=== PATIENT | male | born 1990 | race Caucasian/White ===

== ENCOUNTER 2021-05-05 12:09 | Emergency (ER) | payer OTHER ==
[~2021-05-05] VITALS: Ht 180.3 cm; Wt 89.8 kg
--- NOTE | ~2021-05-05 | EMS ---
[facility] [address] [place] [address] EMS Patient Care Report Name: CYNDY JAMES Room #: DEP TAYLA Wright#: [id number] Admission: 05/05/21 Attend Phys: Discharge: 05/05/21 Date of : [birth year] Report #: [id number] THIS REPORT FOR: //name// Report Transmitted: 05/05/2021 20:19 EMS Care Summary [place], [place]/[facility] Incident [id number] @ 05/05/2021 11:26 Incident Location [address] [place] [id number] Patient CYNDY JAMES Male, 30 Years 1990 Patient Address [address] [place] [address] Patient History Anxiety Disorder (Panic Attacks),Anxiety, Patient Allergies No known allergies, Patient Medications None Reported, Chief Complaint I have a lot of stress going on, panic attack Disposition Transported No Lights/[place] Dispatch Reason Chest Pain (Non-Traumatic) Transported To [facility] Narrative Called for CP. Upon arrival, pt was at the [facility] clinic c/o CP and SOB. Pt was moved to the EMS cot and loaded into the ambulance w/o incident. [facility] [address] [place] [address] EMS Patient Care Report Name: CYNDY JAMES Room #: DEP Kyle#: [id number] Admission: 05/05/21 Attend Phys: Discharge: 05/05/21 Date of : [birth year] Report #: [id number] He stated he has anxiety issues and is going through a fair amount of stress. Vitals obtained. 12 lead obtained. 18g IV SL. Vitals repeated. En route: pt calmed down and was doing a lot better. RR to the ER. Arrived: pt taken to ER #7 and moved to their bed w/o incident. Pt care & report to ER staff. Initial Vitals @11:47P: 47,SpO2: 99, @11:52P: 50,R: 16,Pain: 0/10,GCS: 15,CO: 0,SpO2: 100,NE Suspected: false @11:44P: 75,R: 16,BP: 138/72,Pain: 0/10,GCS: 15,CO: 0,SpO2: 100,Revised Trauma: 12, @11:48P: 39,R: 16,BP: 154/74,Pain: 0/10,GCS: 15,Glucose: 102,SpO2: 98,Revised Trauma: 12,NE Suspected: false Assessments @11:33MENTAL:Person Oriented,Time Oriented,Place Oriented,Event Oriented,SKIN:HEENT:LUNG SOUNDS:ABDOMEN:PELVIS//GI:EXTREMITIES:Left Arm: No Abnormalities,Right Arm: No Abnormalities,Left Leg: No Abnormalities,Right Leg: No Abnormalities,PULSE:Radial: 2+ Normal,NEURO:No Abnormalities, Impression Anxiety reaction/Emotional upset Procedures @11:52 12-Lead ECG Response: UnchangedSucceeded @11:47 12-Lead ECG Response: UnchangedSucceeded @11:48 IV Therapy - Saline Lock cc (18 ga) Site: Antecubital-Left Response: UnchangedFailed @11:37 Stretcher Response: Unchanged @11:45 3-Lead ECG Response: UnchangedSucceeded @11:33 ALS Assessment Response: UnchangedSucceeded Timeline 11:24,Call Received 11:24,Dispatch Notified 11:26,Dispatched 11:28,En Route 11:32,On Scene 11:33,At Patient 11:33,ALS Assessment,Response: UnchangedSucceeded, 11:37,Stretcher,Response: Unchanged 11:44,BP: 138/72 M,PULSE: 75,RR: 16 R,SPO2: 100 Ox,ETCO2: ,BG: ,PAIN: 0,GCS: 15, 11:45,3-Lead ECG,Response: UnchangedSucceeded, 11:47,12-Lead ECG,Response: UnchangedSucceeded, 11:47,BP: / M,PULSE: 47,RR: R,SPO2: 99 Ox,ETCO2: ,BG: ,PAIN: ,GCS: , [facility] [address] [place] [address] EMS Patient Care Report Name: CYNDY JAMES Room #: STEFFEN Wright#: [id number] Admission: 05/05/21 Attend Phys: Discharge: 05/05/21 Date of : [birth year] Report #: [id number] 11:48,IV Therapy - Saline Lock cc 18 ga Site: Antecubital-Left,Response: UnchangedFailed, 11:48,BP: 154/74 M,PULSE: 39,RR: 16 R,SPO2: 98 Ox,ETCO2: ,B,PAIN: 0,GCS: 15, 11:50,Depart Scene 11:52,12-Lead ECG,Response: UnchangedSucceeded, 11:52,BP: / M,PULSE: 50,RR: 16 R,SPO2: 100 Ox,ETCO2: ,BG: ,PAIN: 0,GCS: 15, 12:03,At Destination 12:27,Call Closed Disclaimer [email or web address] Copyright 2021 [employer] This EMS Care Summary contains data elements from the applicable legal record (which may be displayed differently). It is designed to provide pertinent information for the following purposes: continuity of care, clinical quality, and state data reporting. The complete legal record is available to ED staff and administrators of the receiving hospital in [employer] Patient Tracker. All data is provided "as is."
[2021-05-05 12:27] LABS: ABSOLUTE NEUTROPHILS 4.6 thou/uL (1.4-8.2); BASOPHILS 0.8 % (0.0-2.0); EOSINOPHILS 0.3 % (0.0-3.0); HEMATOCRIT 47.2 % (42.0-52.0); HEMOGLOBIN 16.4 gm/dL (14.0-18.0); LYMPHOCYTES 26.9 % (24.0-44.0); MCH 30.8 pg (26.0-34.0); MCHC 34.8 g/dL (28.0-37.0); MCV 88.5 fL (80.0-100.0); MONOCYTES 5.6 % (1.0-8.0); PLATELET COUNT 220 thou/uL (150-400); POLYS 66.4 % (36.0-66.0); RBC 5.33 mil/uL (4.50-6.00); RDW 13.4 % (10.5-14.5); WBC 6.9 thou/uL (4.0-11.0)
[2021-05-05 12:41] LABS: CALCIUM 9.8 mg/dL (8.5-10.1); CREATININE 1.1 mg/dL (0.7-1.3); POTASSIUM 4.2 mmol/L (3.5-5.1)
[2021-05-05 12:51] LABS: ALBUMIN 4.3 g/dL (3.4-5.0); TOTAL PROTEIN 7.1 g/dL (6.4-8.2)
[2021-05-05] MEDS ORDERED: NAPROSYN500 MG PO (13:17)
[2021-05-05 13:28] VITALS: BP 117/63
--- NOTE | 2021-05-05 15:58 | EKG ---
[place] [address] [facility] [place] [address] ELECTROCARDIOGRAM REPORT Name: CYNDY JAMES Room #: DEP TAYLA Wright#: [id number] Admission: 05/05/21 Attend Phys: Discharge: 05/05/21 Date of : [birth year] Report #: [id number] [facility] ED Test Date: 2021-05-05 Test Time: 12:19:08 Pat Name: CYNDY JAMES Department: Room: Gender: M Test Man: RAJ : 1990 Requested By: Sebastien Hood Order Number: [id number] MD: Bernardino Griffith Measurements Intervals [place] Rate: 50 P: 148 CT: 182 QRS: 91 QRSD: 105 T: 32 QT: 432 QTc: 394 Interpretive Statements Sinus or ectopic atrial rhythm Borderline right axis deviation No previous ECG available for comparison Electronically Signed On 05-05-2021 15:58:03 MEATMAN by Bernardino Griffith [email or web address] <ELECTRONICALLY SIGNED> By: Bernardino Griffith MD, [facility] 05/05/21 1558 1219 1219 Bernardino Griffith MD, FACC /EPI
--- NOTE | 2021-05-09 07:50 | EKG ---
[place] [address] [facility] [place] [address] ELECTROCARDIOGRAM REPORT Name: ERIKACYNDY Room #: STEFFEN Wright#: [id number] Admission: 05/05/21 Attend Phys: Discharge: 05/05/21 Date of : [birth year] Report #: [id number] [facility] ED Test Date: 2021-05-05 Test Time: 12:18:10 Pat Name: CYNDY JAMES Department: Room: Gender: M Studio Model: RAJ : 1990 Requested By: Sebastien Hood Order Number: [id number] MD: Tavo Vogt Measurements Intervals [place] Rate: 52 P: [place]: QRS: 88 QRSD: 94 T: 37 QT: 437 QTc: 407 Interpretive Statements Sinus bradycardia Baseline wander in lead(s) V4 No previous ECG available for comparison Electronically Signed On 05-09-2021 7:50:19 [employer] COMPILATION CLERK by Tavo Vogt [email or web address] <ELECTRONICALLY SIGNED> By: Tavo Vogt MD, [facility] 05/09/21 0750 1218 1218 Tavo Vogt MD, FACC /EPI
== END 2021-05-05 13:29 | disposition home or self-care (01) ==
LOC: ER 12:09
PROVIDERS: Emergency Medicine
DX: R07.89 Other chest pain (principal); F41.9 Anxiety disorder, unspecified